=== PATIENT | female | born 1940 | race Caucasian/White ===

== ENCOUNTER 2023-11-21 14:40 | Emergency (ER) | payer MEDICARE, BC ==
[~2023-11-21] VITALS: Ht 167.6 cm; Wt 60.0 kg
[2023-11-21 15:35] LABS: INFLUENZA B NAA NEGATIVE (NEGATIVE); RESPIRATORY SYNCYTIAL VIR NAA NEGATIVE (NEGATIVE)
[2023-11-21] MEDS ORDERED: MAPAP500 MG PO (16:39)
[2023-11-21] MEDS ORDERED: PAXLOVID 150-11 EAC1 PO (16:39)
[2023-11-21 16:57] VITALS: BP 114/71
== END 2023-11-21 16:59 | disposition home or self-care (01) ==
LOC: ED 14:40
PROVIDERS: Emergency Medicine
DX: U07.1 COVID-19 (principal)
CPT/HCPCS: 87502; 99283; U0002